=== PATIENT | male | born 1995 | race Caucasian/White ===

== ENCOUNTER 2018-10-09 09:41 | Emergency (ER) | payer MEDICAID ==
[~2018-10-09] VITALS: Ht 175.3 cm; Wt 104.3 kg
[2018-10-09 09:47] VITALS: Ht 175.3 cm; Wt 104.3 kg
[2018-10-09 11:40] VITALS: BP 140/70
== END 2018-10-09 11:40 | disposition home or self-care (01) ==
LOC: ED 09:41
DX: S01.01XD Laceration without foreign body of scalp, subsequent encounter (principal); X58.XXXD Exposure to other specified factors, subsequent encounter

== ENCOUNTER 2019-06-20 09:07 | Emergency (ER) | payer MEDICAID ==
[~2019-06-20] VITALS: Ht 167.6 cm; Wt 106.6 kg
[2019-06-20 09:19] VITALS: Ht 167.6 cm; Wt 106.6 kg
[2019-06-20 10:51] VITALS: BP 159/92
== END 2019-06-20 11:25 | disposition home or self-care (01) ==
LOC: ED 09:07
DX: S43.005A Unspecified dislocation of left shoulder joint, initial encounter (principal); F17.200 Nicotine dependence, unspecified, uncomplicated; E66.9 Obesity, unspecified; Z68.37 Body mass index [BMI] 37.0-37.9, adult; X58.XXXA Exposure to other specified factors, initial encounter; Y93.89 Activity, other specified; Y92.89 Other specified places as the place of occurrence of the external cause; Y99.8 Other external cause status
CPT/HCPCS: 99406; Q0092